=== PATIENT | female | born 1970 | race Caucasian/White ===

== ENCOUNTER 2023-09-07 11:10 | Emergency (ER) | payer OTHER ==
[~2023-09-07] VITALS: Ht 149.9 cm; Wt 59.9 kg
[2023-09-07] MEDS ORDERED: NASAL MIST126 ML (14:03)
== END 2023-09-07 14:47 | disposition home or self-care (01) ==
LOC: ER 11:11
DX: R21 Rash and other nonspecific skin eruption (principal); T14.8XXA Other injury of unspecified body region, initial encounter; W57.XXXA Bitten or stung by nonvenomous insect and other nonvenomous arthropods, initial encounter; Y93.89 Activity, other specified; Y92.89 Other specified places as the place of occurrence of the external cause
CPT/HCPCS: 96372; 99284; J1200; J2920